=== PATIENT | male | born 1990 | race Caucasian/White ===

== ENCOUNTER 2024-09-27 11:55 | Outpatient (CLI) | payer OTHER, SELFPAY ==
--- NOTE | ~2024-09-27 | XR_ITS ---
EXAMINATION: XR hand LT min 3V DATE: 09/27/2024 12:05 INDICATION: Left thumb pain. TECHNIQUE: 3 views of left hand were obtained. COMPARISON: None. FINDINGS: Alignment is normal. No fracture. There is mild osteoarthritis of first metacarpophalangeal joint including a small osteochondral lesion of trapezium. IMPRESSION: 1. Mild osteoarthritis of first metacarpophalangeal joint. Reviewed, dictated and finalized at location A. ERIZING MECHANIC
--- OUTSIDE RECORDS SUMMARY | 2024-09-27 11:59 | XMS_ITS | Clinical Summary ---
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 Take 1 tablet (300 mg total) by mouth daily 90 tablet 3 06/29/2023 Active citalopram (CeleXA) 40 mg tabletIndicatio ns:Anxiety Take 1 tablet (40 mg total) by mouth daily 90 tablet 3 07/12/2023 Active orlistat (GAVIN) 60 mg capsuleIndicati ons:Weight Loss Management for Patient with BMI >=27 Take 1 capsule (60 mg total) by mouth 3 (three) times a day with meals Active albuterol HFA (PROVENTIL HFA,VENTOLIN HFA,PROAIR HFA) 90 mcg/actuation inhalerIndicati ons:Wheezing Inhale 2 puffs every 6 (six) hours as needed for wheezing 1 each 08/07/2023 Active semaglutide (Wegovy) 0.5 mg/0.5 mL auto-injector Inject 0.5 mL (0.5 mg total) under the skin every 7 days 2 mL 1 08/09/2023 Active Active Problems Problem Noted Date Diagnosed Date Class 2 obesity due to exces s calories without serious comorbidity with body mass index (BMI) of 39.0 to 39.9 in adult 01/07/2022 Assessment & Plan (01/07/2022 11:21 AM CDT): Reviewed need to lose weight, reviewed health benefits. Reviewed recommendations for daily intake & activity 20-30 minutes/day. Discussed healthy diet and importance of regular physical activity. Weight has increased 5# since 08/2021 appt. Laryngopharyngeal reflux (LPR) 09/25/2020 Assessment & Plan (09/25/2020 3:36 PM DIRECTOR CLINICAL INFORMATION SERVICES): Pepcid 40 mg at bedtime LPR discussed and Handout provided Annual physical exam 09/14/2020 Assessment & Plan (09/17/2021 8:22 AM DIRECTOR CLINICAL INFORMATION SERVICES): 1. Eat a healthy diet: focus on lean meats and proteins, more fruits, vegetables and whole grains and low in sugars and fats. Limit red meat and avoid processed meat. 2. Maintain a healthy weight; avoid being overweight. Aim for a normal body mass index (BMI) of 18.5-24.9. Help learning to eat healthier, we can set up appointment with harbor master/bander. 3. Have an active lifestyle, strive for 30 minutes of moderate exercise 5 times a week and strength or resistance training at least twice a week. 4. Use broad-spectrum (UVA+UVB) sunscreen with SPF 30 or greater, is water resistant, limit time spent in the sun (10 am-4pm), wear hat, wear UV protective clothing, wear sunglasses. Never use a tanning bed. Skin that was irradiated may be more sensitive over your lifetime. 5. Does not smoke or chew tobacco. 6. Limit alcohol intake, 2 drinks per day for a man. Assessment & Plan (09/14/2020 8:28 PM DIRECTOR CLINICAL INFORMATION SERVICES): 1. Eat a healthy diet: focus on lean meats and proteins, more fruits, vegetables and whole grains and low in sugars and fats. Limit red meat and avoid processed meat. 2. Maintain a healthy weight; avoid being overweight. Aim for a normal body mass index (BMI) of 18.5-24.9. Help learning to eat healthier, we can set up appointment with harbor master/bander. 3. Have an active lifestyle, strive for 30 minutes of moderate exercise 5 times a week and strength or resistance training at least twice a week. 4. Use broad-spectrum (UVA+UVB) sunscreen with SPF 30 or greater, is water resistant, limit time spent in the sun (10 am-4pm), wear hat, wear UV protective clothing, wear sunglasses. Never use a tanning bed. Skin that was irradiated may be more sensitive over your lifetime. 5. Does not smoke or chew tobacco. 6. Limit alcohol intake, 2 drinks per day for a man. Anxiety 09/14/2020 Assessment & Plan (01/07/2022 11:47 AM CDT): Citalopram 40mg daily. Reports good control of anxiety w/current regimen. No changes to be made at this time. Reviewed med Ses & scheduling. Reviewed red flags. Assessment & Plan (09/17/2021 8:55 AM DIRECTOR CLINICAL INFORMATION SERVICES): Citalopram 10mg increased 20mg. Increased stressors with new & 4 y/o daughter. Reports fair control of anxiety w/current regimen. Reviewed med Ses & scheduling. Reviewed red flags. Assessment & Plan (09/15/2020 8:37 AM DIRECTOR CLINICAL INFORMATION SERVICES): Reports good control of anxiety w/current regimen. No changes to be made at this time. Reviewed med Ses & scheduling. Reviewed red flags. Encounter for screening for lipid disorder 09/14 Assessment & Plan (01/07/2022 11:50 AM CDT): 12/19/15 PN=694 HDL=30 IA=970 LDL=84 TC/HDL=4.9 09/15/20 WQ=892 HDL=33 JA=492 LDL=84 TC/HDL=5 NON XPL=356 01/07/22 SS=199 HDL=25 XA=051 LDT=144 TC/HDL=4.1 Strong family h/o CAD. Stressed lifestyle changes. Assessment & Plan (09/17/2021 8:23 AM DIRECTOR CLINICAL INFORMATION SERVICES): 12/19/15 XC=005 HDL=30 UK=870 LDL=84 TC/HDL=4.9 09/15/20 WS=872 HDL=33 XM=789 LDL=84 TC/HDL=5 NON SEP=257 Lipid panel ordered; will call w/results when received. Reviewed diet/exercise recommendations. Assessment & Plan (09/15/2020 8:16 AM DIRECTOR CLINICAL INFORMATION SERVICES): 12/19/15 QI=011 HDL=30 XJ=392 LDL=84 TC/HDL=4.9 Last documented lipid panel. Will go today to have lipids completed. Gout 12/05/2015 Overview (11/25/2016): Gout Assessment & Plan (09/17/2021 8:57 AM DIRECTOR CLINICAL INFORMATION SERVICES): Allopurinol 300mg po daily. Discussed dietary restrictions:Cut down on red meats, ETOH & high-fructose foods (sodas & store-bought cakes/cookies). Increase intake of: low-fat dairy, whole grains & vegetables. Reviewed medication Ses. Assessment & Plan (09/14/2020 8:29 PM DIRECTOR CLINICAL INFORMATION SERVICES): Allopurinol 300mg daily Discussed dietary restrictions:Cut down on red meats, ETOH & high-fructose foods (sodas & store-bought cakes/cookies). Increase intake of: low-fat dairy, whole grains & vegetables. Reviewed medication Ses. Resolved Problems Problem Noted Date Diagnosed Date Resolved Date Class 2 obesity due to exces s calories without serious comorbidity with body mass index (BMI) of 38.0 to 38.9 in adult 09/17/2021 Assessment & Plan (09/17/2021 8:24 AM DIRECTOR CLINICAL INFORMATION SERVICES): Weight remains stable over past year. Reviewed need to lose weight, reviewed health benefits. Reviewed recommendations for daily intake & activity 20-30 minutes/day. Discussed healthy diet and importance of regular physical activity. BMI 38.0-38.9,adult 09/15/2020 09/17/19 22 Assessment & Plan (09/15/2020 8:16 AM DIRECTOR CLINICAL INFORMATION SERVICES): Reviewed need to lose weight, reviewed health benefits. Reviewed recommendations for daily intake & activity 20-30 minutes/day. Discussed healthy diet and importance of regular physical activity. Nasal congestion 09/15/2020 09/17/2021 Assessment & Plan (09/26/2020 8:19 AM DIRECTOR CLINICAL INFORMATION SERVICES): If no improvement after three months, consider Flonase trial Assessment & Plan (09/15/2020 8:31 AM DIRECTOR CLINICAL INFORMATION SERVICES): Referral to Dr Orellana. Contact info given to mr Willams. Animal bite of hand 08/10/2015 08/02/20 18 Overview (11/25/2016): Animal bite of hand Immunizations Name Administration Dates Next Due Influenza, Quadrivalent, Arabella l Culture-based MDCK, Preservative Free, Antibiotic Free, Intramuscular 06/16/2022 Influenza, Quadrivalent, Spl it, Intramuscular 06/23/2016 Influenza, Quadrivalent, Spl it, Preservative Free, Intramuscular 05/17/2021,06/11/2020,06/26/2015 Influenza, Trivalent, IM (MDV) 06/01/2017 Influenza, Unspecified 07/05/2023(Deferr ed: Patient Refused),05/22/2023,04/19/2023(Deferre d: Patient Refused),08/22/2022(Deferred: Patient Refused),06/10/2021,05/22/2020, 020,05/22/2019,05/22/2019,06/05/2018,1 ,06/05/2018,08/29/2017,2017 Tdap 08/22/2015,08/22/2015 Surgical History Surgery Date Site/Laterality Comments VASECTOMY 11/08/2021 Medical History Medical History Date Comments Hx Other Medical 05/2015 GOUT; Comments: CLS 12/05/2015 - Anxiety 2017 Family History Medical History Relation Name Comments Heart disease Father Daniel Heart disease; Cancer Father's Sister Kiana Cali Hypertension Mother Reza Hypertension; Heart disease Other 1 Family history of Heart disease; Hypertension Other 2 Family history of Hypertension; Relation Name Status Comments Father Daniel Alive Father's Sister Kiana Cali Mother Reza Alive Other 1 Other 2 Social History Tobacco Use Types Packs/Day Years Used Date Smoking Tobacco: Never Smokeless Tobacco: Never Alcohol Use Standard Drinks/Week Comments Yes 0 (1 standard drink = 0.6 oz pur e alcohol) 3 x week, beer & liquor AUDIT-C Answer Date Recorded Q1: How often do you have a drink containing alc ohol? Monthly or less 10/20/2021 Average Number of Drinks Not on file 022 Frequency of Binge Drinking Not on file 08/2021 PHQ-2 Answer Date Recorded PHQ-2 Total Score (If total score is 3 or more points, staff should administer the PHQ-9) 0 07/12/2023 Sex and Gender Information Value Date Recorded Sex Assigned at Not on file Legal Sex Male 3:55 AM DIRECTOR CLINICAL INFORMATION SERVICES Gender Identity Male 09/25/2020 8:51 AM DIRECTOR CLINICAL INFORMATION SERVICES Sexual Orientation Straight 04/22/2021 8: 42 PM CDT Obstetrics History Last Filed Vital Signs Vital Sign Reading Time Taken Comments Blood Pressure 124/74 08/07/2023 8:52 AM DIRECTOR CLINICAL INFORMATION SERVICES Pulse 112 08/07/2023 9:11 AM DIRECTOR CLINICAL INFORMATION SERVICES Temperature 36.9 C (98.5 F) 08/07/2023 8:52 AM DIRECTOR CLINICAL INFORMATION SERVICES Respiratory Rate 22 08/07/2023 8:52 AM DIRECTOR CLINICAL INFORMATION SERVICES Oxygen Saturation 96% 08/07/2023 9:11 AM DIRECTOR CLINICAL INFORMATION SERVICES Inhaled Oxygen Concentration - - Weight 115.7 kg (255 lb 1.6 oz) 08/07/2023 8:52 AM DIRECTOR CLINICAL INFORMATION SERVICES Height 175.3 cm (5' 9 ) 07/12/2023 11:3 6 AM DIRECTOR CLINICAL INFORMATION SERVICES Body Mass Index 37.67 07/12/2023 11:36 AM DIRECTOR CLINICAL INFORMATION SERVICES Plan of Treatment Health Maintenance Due Date Last Done Comments Hepatitis C Screening 1989 Varicella Vaccines (1 of 2 - 13+ 2-dose series) 2002 Hepatitis B Screening 12/28/2007 Regular Well Visit/Exam 18-64 01/05/2024 01/04/2023, 09/17/2021, 09/15/2020, Additional history exists Covid-19 Vaccine ( season) 2024 07/29/2021, 11/27/2020, 10/30/2020 Influenza Vaccine (#1) 2024 , 06/16/2022, 06/10/2021, Additional history exists Depression Screening 07/12/2024 07/12/2023, 01/04/2023, 01/07/2022, Additional history exists DTaP/Tdap/Td Vaccine (3 - Td or Tdap) 08/22/2025 08/22/2015, 08/22/2015 HPV Vaccines Aged Out No longer eligi ble based on patient's age to complete this topic Pneumococcal vaccine <65 Aged Out No longer eligible based on patient's age to complete this topic Insurance [employer] Member Subscriber Plan / Payer (Ef fective 2022-Present) Name:Camden Willams Relation to Subscriber:Self Name:Camden Willams Payer ID:[id number] (NAIC) Type:[employer] Address: [address] [place] [phone] Care Teams Looper Fixer Relationship Specialty Start Date End Date Rogerio Nuñez MD [address] [place] [address] PCP - General 08/10/15
--- OUTSIDE RECORDS SUMMARY | 2024-09-27 11:59 | XMS_ITS | Data Portability ---
Author Organization [place] - [facility] [employer], Main Office Address [address] [place] [address] Assessment Encounter Date Assessment Date Assessment LastModified by Organization Details LastModified Time 09/26/2024 09/26/2024 09/06/2024: TG 100 [email or web address] Not available 09/26/2024 17:09:50 Plan of Treatment Reminders Order Date Submit Date Provider Last Modified By Organization Details Last Modified Time Details Appointments Physic al/Bre ual Wellne ss 30 2025 09:00A M Racheal dunn MD Not available Not available Not available Lab sairaami benny Simon, 25-hyd kevin, total, serum [address] (Lab), [address] [place], [address], 09/05/2023 08:17:28 glycoh emoglo bin, total, blood [email or web address] (Lab), [address] [place], [address], 09/05/2023 08:17:28 microa lbumin , urine [address] (Lab), [address] [place], [address], 09/05/2023 08:17:28 CBC w/ auto diff [address] (Lab), [address] [place], [address], 09/05/2023 08:17:27 lipid panel, serum [address] (Lab), [address] [place], [address], 09/05/2023 08:17:27 CMP, serum or plasma [address] (Lab), [address] [place], [address], 09/05/2023 08:17:27 TSH, serum or plasma [address] (Lab), [address] [place], [address], 09/05/2023 08:17:27 vitami n D, 25-hyd kevin, total, serum 2024 025 [facility] (Lab), [address] [place], [address], 09/24/2024 04:03:45 glycoh emoglo bin, total, blood 2024 025 [facility] (Lab), [address] [place], [address], 09/24/2024 04:03:46 microa lbumin , urine 2024 025 [facility] (Lab), [address] [place], [address], 09/24/2024 04:03:46 lipid panel, serum 2024 025 [facility] (Lab), [address] [place], [address], 09/07/2024 10:55:53 CBC w/ auto diff 2024 025 [facility] (Lab), [address] [place], [address], 09/24/2024 04:03:46 TSH, serum or plasma 2024 025 [facility] (Lab), [address] [place], [address], 09/24/2024 04:03:46 CMP, serum or plasma 2024 025 [facility] (Lab), [address] [place], [address], 09/24/2024 04:03:47 Referral None record ed. Procedures None record ed. Surgeries None record ed. Imaging XR, hand, 3 or more view [address] [facility] (Radiology), [address] [place], [address], 09/26/2024 17:20:13 Medication Orders meloxi cam 7.5 mg tablet 2024 025 [id number], [address], [place], [id number], 09/26/2024 17:07:11 Patient TargetsNo targets recorded. Patient Instructions Encounter Date Encounter Id Patient Instructions Last Modified By Organization Details Last Modified Time 08/29/2023 [id number] diabetic eye exam* Not available 02/29/2024 10:43:20 09/03/2024 [id number] diabetic eye exam* [email or web address] Not available 09/03/2024 11:29:25 Reason for Referral None Reported. Results Created Date Observation Date Name Description Value Unit Range Abnormal Flag Note LastModifiedBy Organization Detail LastModifiedTime Result Notes None recorded. Problems Name Problem SNOMED Code Status Onset Date Resolution Date Notes Provider Name and Address Organization Details Recorded Time Vitamin D deficiency 26686299 Active 2023 Racheal dunn MD [address] [facility], [facility] [address], [place], [address], [facility] 4 14:34:55 Gout 39645903 Active 2023 ANETA Sims null, [facility] 4 14:35:17 Generalized anxiety disorder 59875590 Active 2023 Racheal dunn MD [address], [address], [place], [address], [facility] 4 14:47:19 Prediabetes 867860683 Active 2023 Racheal dunn MD [address], [address], [place], [address], [facility] 4 14:47:26 Obesity 992970189 Active 2023 Racheal dunn MD [address], [address], [place], [address], [facility] 4 15:10:22 Cholesterol /high density lipoprotein ratio above reference range 035383609 Active 2023 Marjorie Cloud RN null, [facility] 4 12:59:06 Hyperlipide rita 71978667 Active 2023 Sarina Arcos MA null, [facility] 4 14:17:37 Hypertrigly ceridemia 805918307 Active 2023 Sarina Arcos MA null, [facility] 4 14:18:37 Liver enzymes level above reference range 566353331 Active 2023 Racheal dunn MD [address], [address], [place], [address], [facility] 4 14:48:53 Pain in left thumb 8571421105213 100 Active 2024 Racheal dunn MD [address], [address], [place], [address], [facility] 17:04:52 Problem Notes None recorded. Procedures Surgical History Date Name Laterality Status Provider Name and Address Organization Details Recorded Time Vasectomy completed Gladys Castillo Naveen [facility] 08/29/2023 14:41:37 [place] Teeth completed Gladys Castillo Naveen [facility] 08/29/2023 14:41:46 Imaging Results None recorded. Procedure Notes None recorded. Medical Equipment None Reported. Allergies No known drug allergies Medications Name Sig Start Date Stop Date Status Note LastModified by Organization Details LastModified Time atorvastati n 40 mg tablet TAKE 1 TABLET BY MOUTH EVERY DAY 09/26 completed Not Available Not Available Not Available metformin 500 mg tablet TAKE 1 TABLET BY MOUTH TWICE DAILY active Not Available Not Available No t Available citalopram 40 mg tablet 08/29 completed Not Available Not Available Not Available azithromyci n 250 mg tablet TAKE 2 TABLETS BY MOUTH FOR 1 DAY THEN TAKE 1 TABLET BY MOUTH DAILY FOR 4 DAYS 08/29 completed Not Available Not Available Not Available benzonatate 200 mg capsule TAKE 1 CAPSULE BY MOUTH EVERY 8 HOURS NEEDED FOR COUGH 08/29 completed Not Available Not Available Not Available prednisone 20 mg tablet 08/29 completed Not Available Not Available Not Available meloxicam 7.5 mg tablet Take 1 tablet twice a day by oral route as needed for 15 days. 2024 active Not Available Not Available Not Avai lable citalopram 20 mg tablet take one tablet by mouth once daily No alcohol, driving or with sedating medicatio ns, notify if any change in mood or behavior active Not Available Not Available No t Available ciprofloxac in 0.3 % eye drops 08/29 completed Not Available Not Available Not Available allopurinol 300 mg tablet Take 1 tablet every day by oral route for 90 days. active Not Available Not Available No t Available ergocalcife rol (vitamin D2) 1,250 mcg (50,000 unit) capsule TAKE 1 CAPSULE BY MOUTH EVERY WEEK 09/03 completed Not Available Not Available Not Available albuterol sulfate HFA 90 mcg/actuati on aerosol inhaler INHALE 2 PUFFS BY MOUTH EVERY 6 HOURS NEEDED FOR WHEEZING 08/29 completed Not Available Not Available Not Available fluticasone propionate 50 mcg/actuati on nasal spray,suspe nsion 08/29 completed Not Available Not Available Not Available amoxicillin 875 mg-potassiu m clavulanate 125 mg tablet TAKE 1 TABLET BY MOUTH EVERY 12 HOURS FOR 7 DAYS. TAKE WITH FOOD AND DAILY PROBIOTIC . 08/29 completed Not Available Not Available Not Available fenofibrate 160 mg tablet TAKE 1 TABLET BY MOUTH EVERY DAY 09/26 completed Not Available Not Available Not Available fenofibrate 150 mg capsule TAKE 1 CAPSULE BY MOUTH DAILY active Not Available Not Available No t Available Wegovy 0.25 mg/0.5 mL subcutaneou s pen injector ADMINISTE R 0.25 MG UNDER THE SKIN EVERY WEEK 09/03 completed Not Available Not Available Not Available Zepbound 10 mg/0.5 mL subcutaneou s pen injector INJECT 1 SYRINGE SUBCUTANE OUSLY ONCE A WEEK active Not Available Not Available No t Available Zepbound 5 mg/0.5 mL subcutaneou s pen injector ADMINISTE R 5 MG UNDER THE SKIN EVERY WEEK 09/03 completed Not Available Not Available Not Available Zepbound 2.5 mg/0.5 mL subcutaneou s pen injector ADMINISTE R 2.5 MG UNDER THE SKIN EVERY WEEK 09/03 completed Not Available Not Available Not Available Zepbound 7.5 mg/0.5 mL subcutaneou s pen injector ADMINISTE R 7.5 MG UNDER THE SKIN EVERY WEEK. 09/03 completed Not Available Not Available Not Available Vitals Date Recorded Body weight Body mass index (BMI) Body height Body temperature Heart rate Systolic blood pressure Diastolic blood pressure Provider Name and Address Organization Details Last Updated DateTime 4 317643. 2 g 38.7 kg/m2 175.26 cm 97.4 [degF] 84 /min 118 mm[Hg] 82 mm[Hg] ANETA Sims [place] [facility] 4 14:45:00 Date Recorded Body height Body mass index (BMI) Body weight Body temperature Heart rate Systolic blood pressure Diastolic blood pressure Provider Name and Address Organization Details Last Updated DateTime 5 175.26 cm 34.6 kg/m2 083726. 61 g 97.7 [degF] 72 /min 112 mm[Hg] 76 mm[Hg] ANETA Sims [employer] 5 10:47:39 Date Recorded Body height Body mass index (BMI) Body weight Body temperature Heart rate Systolic blood pressure Diastolic blood pressure Provider Name and Address Organization Details Last Updated DateTime 5 175.26 cm 33.5 kg/m2 543584. 47 g 97.2 [degF] 78 /min 124 mm[Hg] 78 mm[Hg] ANETA Sims [employer] 5 16:40:03 Social History Question Answer Notes LastModified by Organizat ion Details LastModified Time Tobacco Smoking Status Never Smoker ANETA Sims adama [email or web address] 08/29/2023 14:39:19 Do You Have An Advance Directive? No Information not available 08/29/2023 What Is Your Level Of Alcohol Consumption? Occasional Information not available 08/29/2023 What Is Your Level Of Caffeine Consumption? Moderate Information not available 08/29/2023 In The 14 Days Before Symptom Onset, Have You Had Close Contact With A Laboratory-confir med COVID-19 While That Case Was Ill? No Information not available 08/29/2023 In The 14 Days Before Symptom Onset, Have You Had Close Contact With A Person Who Is Under Investigation For COVID-19 While That Person Was Ill? No Information not available 08/29/2023 Are You Currently Employed? Yes Information not available 08/29/2023 What Type Of Diet Are You Following? REGULAR Information not available 08/29/2023 What Is The Highest Grade Or Level Of School You Have Completed Or The Highest Degree You Have Received? 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 Unknown Information not available 08/29/2023 Are There Any Guns Present In Your Home? No Information not available 08/29/2023 Where Do You Live? SingleLevelHouse Information not available 08/29/2023 Do You Have A Medical Power Of Learning Center Instructor? No Information not available 08/29/2023 What Was The Date Of Your Most Recent Tobacco Screening? 09/26/2024 Information not available 09/26/2024 Do You Have Any Pets? Yes Information not available 08/29/2023 What Is Your Relationship Status? Information not available 08/29/2023 Do You Use Your Seat Belt Or Car Seat Routinely? Yes Information not available 08/29/2023 Do You Have Smoke And Carbon Monoxide Detectors In Your Home? Yes Information not available 08/29/2023 Are You Passively Exposed To Smoke? No Information no t available 08/29/2023 Are There Any Smokers In Your House? No Information not available 08/29/2023 Do You Feel Stressed (tense, Restless, Nervous, Or Anxious, Or Unable To Sleep At Night)? [id number] Information not available 08/29/2023 Do You Use Any Illicit Or Recreational Drugs? No Information not available 08/29/2023 Has Tobacco Cessation Counseling Been Provided? No N/a Information not available 08/29/2023 Have You Recently Traveled Abroad? No Information not available 08/29/2023 Do You Or Have You Ever Used Any Other Forms Of Tobacco Or Nicotine? No Information not available 08/29/2023 Sex: Male Functional Status Question Answer Note LastModified by Organization D etails LastModified Time What is your exercise level? Moderate Information not available 08/29/2023 Mental Status None recorded. Family History Relationship Description Onset Age of this Age Resolved Age Notes LastModified by Organization Details LastModified Time Mother Hypertensive disorder Not available 2023 14:35:47 Mother Hyperglycemi a [email or web address] Not available 12/2024 16:09:33 Father Heart disease Not available 2023 14:36:22 Father Hyperlipidem ia [email or web address] Not available 12/2024 16:09:33 Medical History Condition Response NERVE DISEASE N BLINDNESS N RHEUMATIC FEVER N KIDNEY STONES N BLADDER PROBLEMS N MRSA N OTHER # 1 N POLIO N LUNG DISEASE/DISORDER N HISTORY OF DRUG ABUSE N COPD N RADIATION / CHEMOTHERAPY N Other # 2 N BLOOD DISEASES N EAR OR HEARING PROBLEMS N MUMPS N SHINGLES N BOWEL PROBLEMS N DEPRESSION (INCLUDING POST ) N FAILED BACK SYNDROME N STROKE/TIA N ULCERS N BENIGN PROSTATIC HYPERPLASIA N MEASLES N HYPOTENSION N MYOCARDIAL INFARCTION N OBESITY N GERD/NAUSEA N ANEURYSM N URINARY/BLADDER/KIDNEY PROBLEMS N CORONARY ARTERY DISEASE (CAD) N Do you have Advance directive? N ADDICTION CONCERNS N ENDOMETRIOSIS N Impotence N USE OF BLOOD THINNERS N SKIN PROBLEMS N GASTROINTESTINAL DISORDER N PERIPHERAL VASCULAR DISEASE N MUSCLE,JOINT OR BONE PROBLEMS N GASTROINTESTINAL BLEEDING N BLOOD CLOTS N ASTHMA N Abdominal Pain N CATARACTS N ARTERIAL INSUFFICIENCY N ERECTILE DYSFUNCTION N VARICOSITIES N GI PROBLEMS N Low Testosterone N INFERTILITY N AIDS/HIV N CHEMOTHERAPY / RADIATION N LIVER DISEASE N MALE HYPOGONADISM N HYPERTENSION N Deficiency N TOURETTE'S N ANXIETY DISORDER Y BLOOD TRANSFUSION N ANEMIA/BLOOD DISORDER N CHRONIC EAR INFECTIONS N TUBERCULOSIS N GLAUCOMA N FOOT PROBLEM N DIVERTICULITIS N CHICKENPOX N SLEEP APNEA N BACK INJECTIONS N ALLERGIES/HAYFEVER N INFECTIOUS DISEASE N HEART ARRHYTHMIA N PROSTATE N ESRD N INSOMNIA N HIGH CHOLESTEROL / HYPERLIPIDEMIA N HYPERTHYROIDISM N EYE PROBLEMS N PVD N EDEMA N CHRONIC PAIN SYNDROME N HYPOTHYROIDISM N CONSTIPATION N CAROTID BLOCKAGE N BACK / NECK PROBLEMS N ATHEROSCLEROSIS N BREAST PROBLEMS N DIALYSIS N POLYCYSTIC OVARIES N ECZEMA N OSTEOPOROSIS N ARTHRITIS N APPENDICITIS N DIABETES, TYPE BAD TEETH N VON WILLIBRAND'S DISEASE N ENT N HEARTBURN / REFLUX N GI N AUTISM SPECTRUM DISORDER (ASD) N POST LAMINECTOMY SYNDROME N HEPATITIS / LIVER DISEASE N GOUT Y SLEEP DISORDER N ALZHEIMER'S DISEASE N Brain Problems N HERPES N DEMENTIA N HEADACHES/MIGRAINES N SEIZURES/EPILEPSY N VASCULAR DISEASE N PACEMAKER N DIZZINESS N HEART DISEASE/HEART PROBLEMS N KIDNEY DISEASE N MULTIPLE SCLEROSIS N NEUROPSYCHOLOGICAL N CARDIAC ARRHYTHMIA N CANCER: SPECIFY N ATRIAL FIBRILLATION N Gall Stones N PULMONARY EMBOLISM N AUTOIMMUNE DISEASE N Immunizations Vaccine Type Date Status Note Provider Nam e and Address Organization Details Recorded Time Influenza, split virus, quadrivalent, PF 05/31/2023 completed ANETA Sims, [place] [facility] 02/22/2024 11:50:23 Influenza, MDCK, quadrivalent, PF 05/28/2023 completed Gladys Castillo RMA null, [facility] 02/22/2024 11:50:23 Influenza, MDCK, quadrivalent, PF 06/16/2022 completed Gladys Castillo RMA null, [facility] 02/22/2024 11:50:23 COVID-19, mRNA, LNP-S, PF, 30 mcg/0.3 mL dose 10/30/2020 completed Gladys Castillo RMA null, [facility] 02/22/2024 11:50:23 COVID-19, mRNA, LNP-S, PF, 30 mcg/0.3 mL dose 11/27/2020 completed Gladys Castillo RMA null, [facility] 02/22/2024 11:50:23 COVID-19, mRNA, LNP-S, PF, 30 mcg/0.3 mL dose 07/29/2021 completed Gladys Castillo RMA null, [facility] 02/22/2024 11:50:23 COVID-19, mRNA, LNP-S, PF, rosibel-sucrose, 30 mcg/0.3 mL 05/28/2023 completed Gladys Castillo RMA null, [facility] 02/22/2024 11:50:23 influenza, unspecified formulation 08/29/2017 completed Gladys Castillo RMA null, [facility] 02/22/2024 11:50:23 influenza, unspecified formulation 05/22/2019 completed Gladys Castillo RMA null, [facility] 02/22/2024 11:50:23 influenza, unspecified formulation 05/22/2020 completed Gladys Castillo RMA null, [facility] 02/22/2024 11:50:23 influenza, unspecified formulation 05/22/2023 completed Gladys Castillo RMA null, [facility] 02/22/2024 11:50:23 influenza, unspecified formulation 06/05/2018 completed Gladys Castillo RMA null, [facility] 02/22/2024 11:50:23 influenza, unspecified formulation 06/10/2021 completed Gladys Castillo RMA null, [facility] 02/22/2024 11:50:23 Tdap 08/22/2015 completed Gladys Castillo RMA null, [facility] 02/22/2024 11:50:23 Influenza, split virus, quadrivalent, PF 05/17/2021 completed Gladys Castillo RMA null, [facility] 02/22/2024 11:50:23 Influenza, split virus, quadrivalent, PF 06/11/2020 completed Gladys Castillo RMA null, [facility] 02/22/2024 11:50:23 Past Encounters Encounter ID Performer Location Encounter Start Date Encounter Closed Date Diagnosis/Indication Diagnosis SNOMED-CT Code Diagnosis ICD10 Code Diagnosis Note [id number] Racheal mi MD [facility] Internal Med [place] [address] [facility] , [facility] [place] [address] 08/29/2023 14:25:06 08/29/2023 15:12:36 Screening - NAD 789805354 Z13.9 Get yearly flu shot, get tdap if not doneGet COVID 19 vaccine and its boosters RTC in 3 months, do labs, ER if worse, he did verbalize his understand ing of the above Long-term drug therapy 681329144 Z79.899 Vitamin D deficiency 347 00809 E55.9 Generalize d anxiety disorder 49861355 F41.1 Used to be on citalopram 40mg daily, not taking this as he wants to be without any meds, not suicidal or homicidal Prediabetes 062869770 R7 3.03 Not on any meds, get labs Obesity 249617576 E66.9 Used to be on Wegovy but stopped as it was not available, he is also considerin g gastric sleeve surgeryHe has denied any MEN2 or pancreatic issues for GLP -1 use Gout 90013676 M10.9 On allopurino l, does well, OK to renew [id number] Racheal mi MD [facility] Primary Care [place] [address] [facility] [address] [place] [address] 09/03/2024 10:17:41 09/03/2024 11:29:43 Screening - NAD 976611330 Z13.9 Get yearly flu shot, get tdap if not doneGet COVID 19 vaccine and its boosters RTC in 12 months as per his wishes, do labs, ER if worse, he did verbalize his understand ing of the above Vitamin D deficiency 347 53848 E55.9 Generalize d anxiety disorder 19156421 F41.1 Used to be on citalopram 40mg daily, not taking this as he wants to be without any meds, not suicidal or homicidal Prediabetes 548035646 R7 3.03 On metformin 500mg bidOn ZepboundNo t on Wegovy Not on any meds, get labs Obesity 357069250 E66.9 Used to be on Wegovy but stopped as it was not available, he is also considerin g gastric sleeve surgeryHe has denied any MEN2 or pancreatic issues for GLP -1 use OV 09/03/2024 :Now on zepbound does well states that he does get this from [employer], he is aware of all the side effects, states that he has lost 35 pounds while on the Zepbound Gout 05753869 M10.9 On allopurino l, does well, OK to renew Hyperlipidemia 41077005 E78.5 On atorvastat in 40mg dailyOn fenofibrat e 160mg dailyMay stop these meds if labs good as he has lost 35 poundsGet labs Adult heal th examination 622175686 Z00.00 [id number] Racheal mi MD [facility] Primary Care [place] [address] [facility] [address] [place] [address] 09/26/2024 16:08:18 09/26/2024 17:20:13 Pain in left thumb 0032899201 856599 M79.645 +Ve mild swelling and tenderness in the mid thenar eminence, able to make a fist and normal thumb opposition Will start on meloxicam, get x raysIf not better will need to see ortho Hyperlipidemia 73237078 E78.5 On atorvastat in 40mg dailyOn fenofibrat e 160mg dailyCan d/c 09/26/2024 , does need to repeat the labsMay stop these meds as he has lost 35 poundsGet labs Prediabetes 539591180 R7 3.03 On metformin 500mg bidOn ZepboundNo t on Wegovy Not on any meds, get labs Screening - NAD 58088553 3 Z13.9 Get yearly flu shot, get tdap if not doneGet COVID 19 vaccine and its boosters RTC in 11 months as per his wishes, do labs, ER if worse, he did verbalize his understand ing of the above Gout 50478526 M10.9 On allopurino l, does well, OK to renew Health Concerns Section Related Observation LastModified by Organization Detai ls LastModified Time None Recorded Concern Status LastModified by Organization Details LastModified Time None Recorded Advance Directives Directive N: Payers Encounter Date Sequence Insurance Name Policy Number Policy Abrams Covered Member ID Abrams Member ID Guarantor Name 08/29/2023 1 [facility] (PPO) [id number] Camden Imer [id number] Camden Imer 09/03/2024 1 [employer] ([employer]) [id number] Camden Imer [id number] Camden Imer 09/26/2024 1 [place] [employer] [id number] Camden Imer [id number] Camden Imer Notes Date Note Type Note Provider Name and Address Organization Details Recorded Time 08/29/2023 text/html OV 08/29/2023:He re to establish care Past Hx: Reviewed social family and surgical history Here to discuss above and get labs too Racheal Cruz MD [address] [facility], [facility] [address], [place], [address], [place] [facility] [employer] 08/29/2023 15:52:59 09/03/2024 text/html OV 08/29/2023:He re to establish care Past Hx: Reviewed social family and surgical history Here to discuss above and get labs too OV 09/03/2024: He is here for his annual wellness visit, he is doing well, no new labs, states that he is on Zepbound, and he does well on this, states that he takes this via [employer] and has lost 35 pounds Racheal Cruz MD [address], [address], [place], [address], [facility] [employer] 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 09/26/2024 17:36:09
--- OUTSIDE RECORDS SUMMARY | 2024-09-27 11:59 | XMS_ITS | Referral Summary ---
Author Organization [facility] [place] [address] [facility] Address [address] [place] [address] Care Team Providers Care Electrical Mechanical Technician Name Role Phone Rogerio Nuñez MD Primary Care Provider [phone] Allergies No known active allergies Medications semaglutide [...] 09/25/2020 Assessment & Plan (09/25/2020 3:36 PM DOG SITTER): Pepcid 40 mg at bedtime LPR discussed and Handout provided Annual physical exam 09/14/2020 Assessment & Plan (09/17/2021 8:22 AM DOG SITTER): 1. Eat a healthy diet: focus on lean meats and proteins, more fruits, vegetables and whole grains and low in sugars and fats. Limit red meat and avoid processed meat. 2. Maintain a healthy weight; avoid being overweight. Aim for a normal body mass index (BMI) of 18.5-24.9. Help learning to eat healthier, we can set up appointment with child watch attendant/industrial engineering intern. 3. Have an active lifestyle, strive for [...] man. Assessment & Plan (09/14/2020 8:28 PM DOG SITTER): 1. Eat a healthy diet: focus on lean meats and proteins, more fruits, vegetables and whole grains and low in sugars and fats. Limit red meat and avoid processed meat. 2. Maintain a healthy weight; avoid being overweight. Aim for a normal body mass index (BMI) of 18.5-24.9. Help learning to eat healthier, we can set up appointment with child watch attendant/industrial engineering intern. 3. Have an active lifestyle, strive for [...] flags. Assessment & Plan (09/17/2021 8:55 AM DOG SITTER): Citalopram 10mg increased 20mg. Increased stressors with new & 4 y/o daughter. Reports fair control of anxiety w/current regimen. Reviewed med Ses & scheduling. Reviewed red flags. Assessment & Plan (09/15/2020 8:37 AM DOG SITTER): Reports good control of anxiety w/current regimen. No changes to be made at this time. Reviewed med Ses & scheduling. Reviewed red flags. Encounter for screening for lipid disorder 09/14 Assessment & Plan (01/07/2022 11:50 AM CDT): 12/19/15 XS=927 HDL=30 OM=469 LDL=84 TC/HDL=4.9 09/15/20 FI=860 HDL=33 EV=103 LDL=84 TC/HDL=5 NON VHM=417 01/07/22 PG=461 HDL=25 YJ=008 EAN=778 TC/HDL=4.1 Strong family h/o CAD. Stressed lifestyle changes. Assessment & Plan (09/17/2021 8:23 AM DOG SITTER): 12/19/15 ZS=040 HDL=30 OS=223 LDL=84 TC/HDL=4.9 09/15/20 EW=906 HDL=33 UL=429 LDL=84 TC/HDL=5 NON FYS=576 Lipid panel ordered; will call w/results when received. Reviewed diet/exercise recommendations. Assessment & Plan (09/15/2020 8:16 AM DOG SITTER): 12/19/15 TS=577 HDL=30 WS=448 LDL=84 TC/HDL=4.9 Last documented lipid panel. Will go today to have lipids completed. Gout 12/05/2015 Overview (11/25/2016): Gout Assessment & Plan (09/17/2021 8:57 AM DOG SITTER): Allopurinol 300mg po daily. Discussed dietary restrictions:Cut down on red meats, ETOH & high-fructose foods (sodas & store-bought cakes/cookies). Increase intake of: low-fat dairy, whole grains & vegetables. Reviewed medication Ses. Assessment & Plan (09/14/2020 8:29 PM DOG SITTER): Allopurinol 300mg daily Discussed dietary restrictions:Cut down [...] 09/17/2021 Assessment & Plan (09/17/2021 8:24 AM DOG SITTER): Weight remains stable over past year. Reviewed need to lose weight, reviewed health benefits. Reviewed recommendations for daily intake & activity 20-30 minutes/day. Discussed healthy diet and importance of regular physical activity. BMI 38.0-38.9,adult 09/15/2020 09/17/19 22 Assessment & Plan (09/15/2020 8:16 AM DOG SITTER): Reviewed need to lose weight, reviewed health benefits. Reviewed recommendations for daily intake & activity 20-30 minutes/day. Discussed healthy diet and importance of regular physical activity. Nasal congestion 09/15/2020 09/17/2021 Assessment & Plan (09/26/2020 8:19 AM DOG SITTER): If no improvement after three months, consider Flonase trial Assessment & Plan (09/15/2020 8:31 AM DOG SITTER): Referral to Dr Orellana. Contact info given [...] Refused),08/22/2022(Deferred: Patient Refused),06/10/2021,05/22/2020, 020,05/22/2019,05/22/2019,06/05/2018,1 ,06/05/2018,08/29/2017,2017 Tdap 08/22/2015,08/22/2015 Social History Tobacco Use Types Packs/Day Years [...] on file Legal Sex Male 3:55 AM DOG SITTER Gender Identity Male 09/25/2020 8:51 AM DOG SITTER Sexual Orientation Straight 04/22/2021 8: 42 PM CDT Last Filed Vital Signs Vital Sign Reading Time Taken Comments Blood Pressure 124/74 08/07/2023 8:52 AM DOG SITTER Pulse 112 08/07/2023 9:11 AM DOG SITTER Temperature 36.9 C (98.5 F) 08/07/2023 8:52 AM DOG SITTER Respiratory Rate 22 08/07/2023 8:52 AM DOG SITTER Oxygen Saturation 96% 08/07/2023 9:11 AM DOG SITTER Inhaled Oxygen Concentration - - Weight 115.7 kg (255 lb 1.6 oz) 08/07/2023 8:52 AM DOG SITTER Height 175.3 cm (5' 9 ) 07/12/2023 11:3 6 AM DOG SITTER Body Mass Index 37.67 07/12/2023 11:36 AM DOG SITTER Plan of Treatment Not on file Insurance [employer] OOS ANTHEM ACCESS Care Teams Electrical Mechanical Technician Relationship Specialty Start Date End Date Rogerio Nuñez MD [address] [place] [address] PCP - General 08/10/15
--- OUTSIDE RECORDS SUMMARY | 2024-09-27 11:59 | XMS_ITS | Data Portability ---
Author Organization [place] [facility] [place] , [facility] Address [address] [place] [address] Assessment Encounter Date Assessment Date Assessment LastModified by Organization Details LastModified Time 09/24/2024 09/24/2024 left thumb strain/sprain vs left thumb soft tissue tear vs left thumb arthritis vs left thumb fracture The patient is recommended to be evaluated in person for a physical examination, possible imaging, and physical therapy referrals or other referrals. The patient agrees with the diagnosis and treatment plan. The patient understands the limitations of telemedicine. The patient will reconnect with telemedicine or pursue an in person examination if symptoms do not resolve, improve, or new symptoms develop. Not available 09/24/2024 20:29:35 Plan of Treatment Reminders Order Date Submit Date Provider Last Modified By Organization Details Last Modified Time Details Appointments None record ed. Lab None record ed. Referral None record ed. Procedures None record ed. Surgeries None record ed. Imaging None record ed. Medication Orders None record ed. Patient TargetsNo targets recorded. Patient InstructionsNo instructions recorded. Reason for Referral None Reported. Problems Name Problem SNOMED Code Status Onset Date Resolution Date Notes Provider Name and Address Organization Details Recorded Time Anxiety [id number] Active 025 Kyler Travis DO [address] [facility] [address] [place], [address], [place] [facility] 13:47:44 Gout 47349483 Active 025 Kyler Travis DO 1 [facility] [address] [place] [address], [address], [place] [facility] 13:47:51 Problem Notes None recorded. Medical Equipment None Reported. Allergies No known drug allergies Vitals None Recorded Social History Question Answer Notes LastModified by Organizat ion Details LastModified Time Tobacco Smoking Status Never Smoker Kyler Travis DO [address] [facility] [address] [place], [address], [place] [facility] 09/24/2024 13:49:00 What Is Your Level Of Alcohol Consumption? Occasional [email or web address] Information not available 09/24/2024 Do You Use Any Illicit Or Recreational Drugs? No [email or web address] Information not available 09/24/2024 Sex: Unknown Functional Status None recorded. Mental Status None recorded. Family History Nothing Reported. Medical History No medical history recorded. Past Encounters Encounter ID Performer Location Encounter Start Date Encounter Closed Date Diagnosis/Indication Diagnosis SNOMED-CT Code Diagnosis ICD10 Code Diagnosis Note [id number] Kyler Travis DO [facility] [address] [place] [address] 09/24/2024 13:40:34 09/25/2024 01:51:27 Pain in left thumb [id number] M79.645 Health Concerns Section Related Observation LastModified by Organization Detai ls LastModified Time None Recorded Concern Status LastModified by Organization Details LastModified Time None Recorded Advance Directives Directive None Recorded Payers Encounter Date Sequence Insurance Name Policy Number Policy Abrams Covered Member ID Abrams Member ID Guarantor Name 09/24/2024 1 [facility] [id number] Camden Willams [id number] Camden Willams 09/24/2024 2 *SELF PAY* [id number] Camden Willams [id number] Camden Willams Notes Date Note Type Note Provider Name and Address Organization Details Recorded Time 09/24/2024 text/html 33 yo male prese nts c/o left thumb pain intermittently for the last 2 weeks. Patient hyperextended his left thumb trying to catch himself from a fall. Left thumb pain has a pain level of 5/10 which performing a push up. There is a sharp quality of pain with he performs a push up as well. Left thumb pain is located in his MCP joint of his thumb and it does not radiate. Patient has decreased left hand pad extraction tender strength. Patient denies previous left thumb injuries. Kyler Travis DO [address] [facility] [address], [place], [address], [place] [facility] 09/24/2024 20:30:10
--- OUTSIDE RECORDS SUMMARY | 2024-09-27 12:00 | XMS_ITS | Clinical Summary ---
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
--- OUTSIDE RECORDS SUMMARY | 2024-09-27 12:00 | XMS_ITS | Clinical Summary ---
Author Organization [facility] Care Team Providers Care Thermodynamics Engineer Name Role Phone Provider, None Primary Care Provider Unavailabl e Allergies No known active allergies Medications No known medications Active Problems No known active problems Social History Tobacco Use Types Packs/Day Years Used Date Smoking Tobacco: Never Assessed Sex and Gender Information Value Date Recorded Sex Assigned at Not on file Legal Sex Male 11:20 PM CDT Gender Identity Not on file Sexual Orientation Not on file Plan of Treatment Health Maintenance Due Date Last Done Comments Hepatitis C Virus (HCV) Screening 1989 TdaP Immunization 1989 Hepatitis B Immunization (1 of 3 - 19+ 3-dose series) 2008 Influenza Immunization (#1) 2024 SARS-COV-2 Immunization ( - 2023- season) 2024 Respiratory Syncytial Virus (RSV) Immunization (Adult) (1 - 1-dose 75+ series) 2064 Meningococcal Immunization (ACWY) Aged Out No longer eligible based on patient's age to complete this topic Pneumococcal Immunization Combined Aged Out No longer eligible based on patient's age to complete this topic Rotavirus Immunization Aged Out No lo nger eligible based on patient's age to complete this topic Care Teams Thermodynamics Engineer Relationship Specialty Start Date End Date Provider, None YESSICA PCP - General 02/04/21
== END 2024-09-27 11:56 | disposition home or self-care (01) ==
PROVIDERS: Visit Provider Internal Medicine
DX: M19.042 Primary osteoarthritis, left hand (principal)
CPT/HCPCS: 73130